=== PATIENT | male | born 1935 | race Caucasian/White ===

== ENCOUNTER 2019-11-18 17:16 | Inpatient (IN) | payer MEDICAID, MEDICARE ==
[~2019-11-18] VITALS: Ht 165.1 cm; Wt 55.3 kg
--- NOTE | 2019-11-18 18:30 | NUR ---
DIRECT ADMIT FROM [facility].RECEIVED REPORT FROM CAYETANO WORLEY RN OF [facility]. V/S STABLE.PT IS ALERT AND ORIENTED X 3 .VERBALLY RESPONSIVE.HARD OF HEARING. PT'S DAUGHTER,MICHAEL BLANKENSHIP WILL BRING PT'S JEFF HEARING AIDS LATER. PT DENIES ANY PAIN OR SOB AT THIS TIME. ORIENTED PT TO HIS ROOM AND THE USE OF CALL LIGHT.ENDORSED TO BAILER TENDERS SUPERVISOR SHAWN FAIRCHILD FOR CONTINUITY OF CARE AND ADMISSION. CALL LIGHT PLACED WITHIN REACH.
[2019-11-18] MEDS ORDERED: ONDANSETRON HCL/PF 4 MG/2 ML VIAL IVP PRN (19:00)
[2019-11-18] MEDS ORDERED: Z GUARD REMEDY 2 OZ OINT TP PRN (19:00)
[2019-11-18] MEDS ORDERED: ACETAMINOPHEN 325 MG TABLET PO PRN (19:00)
[2019-11-18 19:15] VITALS: BP 101/54
[2019-11-18] MEDS ORDERED: PRED2.5T PO (19:20)
[2019-11-18] MEDS ORDERED: OMEP20CA15 PO (19:20)
[2019-11-18] MEDS ORDERED: DILT30TA14 PO (19:20)
[2019-11-18] MEDS ORDERED: ACYC800T PO (19:20)
[2019-11-18] MEDS ORDERED: HYDR-4384 PO (19:20)
[2019-11-18] MEDS ORDERED: FOLI0.4T2 PO (19:20)
[2019-11-18] MEDS ORDERED: METH2.5T PO (19:20)
[2019-11-18] MEDS ORDERED: CALC-7 PO (19:20)
[2019-11-18] MEDS ORDERED: APIX5TAB PO (19:20)
[2019-11-18] MEDS ORDERED: FINA5TAB11 PO (19:20)
[2019-11-18] MEDS ORDERED: PRIM50TA27 PO (19:20)
[2019-11-18] MEDS ORDERED: ATOR10TA PO (19:20)
[2019-11-18] MEDS ORDERED: ASPI-1152 PO (19:20)
[2019-11-18] MEDS ORDERED: TAMS-12 PO (19:20)
[2019-11-18 20:00] VITALS: BP 101/54
--- NOTE | 2019-11-18 20:00 | NUR ---
TELE APPLIED previously but was not reading; tele box changed now reading afib in 80's will cont to monitor
--- NOTE | 2019-11-18 20:34 | NUR ---
PHARMACY; REVIEW OF ANTIBIOTICS ORDERED AND WHAT WAS ADMINISTERED AT [facility]; LOVENOX HELD. SPOKE WITH LAB PATIENT WAS GIVEN ROCEPHIN AND AZITHROMYCIN AT [facility]. SO MEDICATIONS RESCHEDULED FOR TOMORROW. PHARMACIST TO HOLD LOVENOX INJECTION PATIENT PLATELETS ARE LOW AT 114. PATIENT ALSO HAS MED REC THAT HAS NOT BEEN REVIEWED BY MD AND WAS APARENTLY ON APIX[employer]AN AT HOME.
[2019-11-18] MEDS ORDERED: CEFTRIAXONE 1 G in IV D5W 50 ML IV SCH (21:00)
[2019-11-18] MEDS ORDERED: AZITHROMYCIN 250 MG TABLET PO SCH (21:00)
[2019-11-18] MEDS: LIDOCAINE 5% OINT 35.44 GM TUBE TP SCH (21:05)
[2019-11-18] MEDS: VALACYCLOVIR HCL 500 MG TABLET PO SCH (21:05)
[2019-11-18] MEDS: IV NS 0.9% 1,000 ML IV PRN (21:31)
--- NOTE | 2019-11-18 22:00 | NUR ---
WITH PERMISSION FROM PATIENT CONTACTED DAUGHTER/PRIMARY CAREGIVER TO CLARIFY DETAILS OF ADMISSION ASSESSMENT MICHAEL BLANKENSHIP [phone]. ADMISSION ASSESSMENT PERFORMED.
[2019-11-19] VITALS: BP 155/89
--- NOTE | 2019-11-19 02:38 | NUR ---
SCD UNAVAILABLE ON FLOOR. WILL ENDORSE TO AM SHIFT TO APPLY WHEN CENTRAL SUPPLY IS AVAIALBLE. .
[2019-11-19 04:00] VITALS: BP 163/105
[2019-11-19] MEDS: VALACYCLOVIR HCL 500 MG TABLET PO SCH ×3 (04:07→22:54)
[2019-11-19] MEDS: LIDOCAINE 5% OINT 35.44 GM TUBE TP SCH ×3 (04:07→21:49)
--- NOTE | 2019-11-19 07:00 | NUR ---
RN PM CLOSING NOTES TELE PT ON TELE AFIB IN THE 80'S. PT ASSISTED TO COMMODE AND BACK TO BED. DENIES DIZZINESS. PATIENT HAD ONE BM LAST NIGHT. PT DENIES ANY PAIN OR SOB AT THIS TIME. CALL LIGHT PLACED WITHIN REACH. WILL ENDORSE TO DAY SHIFT FOR JOSELUIS.
--- NOTE | 2019-11-19 07:27 | NUR ---
RN NOTES Patient received on room air, no sob noted, a/o x3. on tele monitor, A FIB in the 80's, multiple redness on his body due to shingles apparently. regular diet with R AC 18 NS @ 75 ml per hour. bed at the lowest setting, call light within reach, side rails up x2.
[2019-11-19] MEDS ORDERED: PANTOPRAZOLE 40 MG TABLET.DR PO SCH (07:30)
[2019-11-19 08:00] VITALS: BP 153/88
[2019-11-19] MEDS: CEFTRIAXONE 1 G in IV D5W 50 ML IV SCH (08:08)
[2019-11-19] MEDS: AZITHROMYCIN 250 MG TABLET PO SCH (08:08)
[2019-11-19 08:38] LABS: BASOPHILS % (AUTO) 0.1 % (0.0-2.0); HEMATOCRIT 37 % (39-51); HEMOGLOBIN 12.6 g/dL (13.5-17.5); LYMPHOCYTES # (AUTO) 0.6 /CMM (0.8-4.8); LYMPHOCYTES % (AUTO) 6.2 % (20.0-44.0); MEAN CORPUSCULAR HGB CONC 34 g/dl (31.0-36.0); MEAN CORPUSCULAR VOLUME 98 fL (80-96); MONOCYTES # (AUTO) 0.7 /CMM (0.1-1.30); MONOCYTES % (AUTO) 8.1 % (2.0-12.0); NEUTROPHILS # (AUTO) 7.6 /CMM (1.8-8.9); NEUTROPHILS % (AUTO) 85.6 % (43.0-81.0); PLATELET COUNT (AUTO) 113 /CMM (150-450); RED BLOOD CELL COUNT(AUTO) 3.77 MIL/uL (4.5-6.0); WHITE BLOOD COUNT (AUTO) 8.9 K/uL (4.3-11.0)
[2019-11-19 09:06] LABS: ALBUMIN 3.2 g/dL (3.4-5.0); BILIRUBIN,TOTAL 0.7 mg/dL (0.2-1.0); CALCIUM, SERUM 9.2 mg/dL (8.5-10.1); CREATININE 0.8 mg/dL (0.6-1.3); TOTAL PROTEIN, SERUM 6.5 g/dL (6.4-8.2)
[2019-11-19 09:08] LABS: THYROID STIMULATING HORMONE 0.5 uIU/mL (0.358-3.74)
[2019-11-19] MEDS ORDERED: ENOXAPARIN SODIUM 40 MG/0.4 ML DISP.SYRIN SQ SCH (11:00)
[2019-11-19] MEDS: GABAPENTIN 100 MG CAPSULE PO SCH ×2 (12:33→16:19)
[2019-11-19 16:00] VITALS: BP 158/95
[2019-11-19] MEDS: APIXABAN 2.5 MG TABLET PO SCH (16:18)
[2019-11-19] MEDS: CALCIUM CARB 250MG /VITAMIN D 1 UDTAB PO SCH (16:19)
[2019-11-19] MEDS: DILTIAZEM HCL 30 MG TABLET PO SCH (16:19)
--- NOTE | 2019-11-19 17:30 | NUR ---
RN NOTE RECEIVED PATIENT FROM [facility] FOR CONTINUITY OF CARE. PATIENT IS IN STABLE CONDITION, A/O X4, AMBULATORY, ABLE TO MAKE NEEDS KNOWN. PATIENT SAFETY MAINTAINED, CALL LIGHT WITHIN REACH, WILL CONTINUE TO MONITOR.
[2019-11-19] MEDS ORDERED: IPRATROPIUM/ALBUTEROL INHALER IH SCH (18:00)
[2019-11-19 18:04] LABS: C-REACTIVE PROTEIN 12.7 mg/dL (0.0-0.9)
[2019-11-19] MEDS: IV NS 0.9% 1,000 ML IV PRN (18:40)
--- NOTE | 2019-11-19 19:14 | NUR ---
RN CLOSING NOTES. NO ACUTE CHANGES TO PATIENT CONDITION, ALL PATIENT NEEDS MET, SAFETY MAINTAINED, CALL LIGHT WITHIN REACH, ENDORSED TO PM NURSE FOR CONTINUITY OF CARE.
[2019-11-19 20:00] VITALS: BP 172/100
--- NOTE | 2019-11-19 20:00 | NUR ---
RN OPENING NOTES RECEIVED REPORT FROM GURINDER ALDRICH. PATIENT RESTING IN BED, A/OX3, ABLE TO MAKE NEEDS KNOWN AND FOLLOW COMMANDS. DENIES ANY PAIN. ON ROOM AIR, NO SIGNS OF RESPIRATORY DISTRESS NOTED. PATIENT AMBULATORY WITH ASSIST. IV ON RIGHT AC #18, PATENT AND FLUSHING WELL, NO S/S OF INFILTRATION NOTED, IVF RUNNING ORDERED, NO INFILTRATION NOTED. PATIENT SAFETY MAINTAINED, CALL LIGHT WITHIN REACH, SIDE RAILS UP X2, BED LOCKED AND IN LOWEST POSITION, BED ALARM ON. WILL CONTINUE TO MONITOR CLOSELY.
--- NOTE | 2019-11-19 20:20 | NUR ---
RN NOTES PAGED CREEL OPERATOR HOSPITALIST REGARDING PATIENT INCREASED BP RECHECKED 4X SBP STILL 170'S. MD STATED WILL ORDER BP MEDICATION. AWAITING FOR ORDERS.
[2019-11-19] MEDS: ALBUTEROL FS 2.5 MG/0.5 ML VIAL.NEB NEB SCH (21:48)
[2019-11-19] MEDS: TAMSULOSIN 0.4 MG CAP.SR.24H PO SCH (21:48)
[2019-11-19] MEDS: IPRATROPIUM NEB FS 0.5 MG/2.5 ML AMPUL.NEB NEB SCH (21:48)
[2019-11-19] MEDS: ATORVASTATIN 10 MG TABLET PO SCH (21:48)
[2019-11-19] MEDS: hydrALAZINE HCL 10 MG TABLET PO SCH (21:48)
[2019-11-19] MEDS: PRIMIDONE 50 MG TABLET PO SCH (21:48)
[2019-11-19] MEDS ORDERED: VALACYCLOVIR HCL 500 MG TABLET ONE (22:49)
[2019-11-20] VITALS: BP 140/77
[2019-11-20 04:00] VITALS: BP 138/88
[2019-11-20] MEDS: LIDOCAINE 5% OINT 35.44 GM TUBE TP SCH ×3 (05:29→21:07)
[2019-11-20] MEDS: hydrALAZINE HCL 10 MG TABLET PO SCH ×3 (05:30→21:06)
[2019-11-20] MEDS ORDERED: VALACYCLOVIR HCL 500 MG TABLET ONE (05:37)
[2019-11-20] MEDS: VALACYCLOVIR HCL 500 MG TABLET PO SCH ×3 (05:39→21:06)
[2019-11-20 06:54] LABS: CALCIUM, SERUM 9.1 mg/dL (8.5-10.1); CREATININE 0.7 mg/dL (0.6-1.3); MAGNESIUM 2.1 mg/dL (1.8-2.4); PHOSPHORUS 2.7 mg/dL (2.5-4.9); POTASSIUM 3.7 mmol/L (3.5-5.1)
[2019-11-20 06:59] LABS: BASOPHILS % (AUTO) 0.2 % (0.0-2.0); EOSINOPHILS % (AUTO) 0.3 % (0.0-6.0); HEMATOCRIT 38 % (39-51); LYMPHOCYTES % (AUTO) 15.2 % (20.0-44.0); MEAN CORPUSCULAR HGB CONC 34 g/dl (31.0-36.0); MEAN CORPUSCULAR VOLUME 98 fL (80-96); MONOCYTES # (AUTO) 0.8 /CMM (0.1-1.30); MONOCYTES % (AUTO) 11.7 % (2.0-12.0); NEUTROPHILS % (AUTO) 72.6 % (43.0-81.0); PLATELET COUNT (AUTO) 132 /CMM (150-450); RED BLOOD CELL COUNT(AUTO) 3.89 MIL/uL (4.5-6.0); WHITE BLOOD COUNT (AUTO) 6.9 K/uL (4.3-11.0)
--- NOTE | 2019-11-20 07:09 | NUR ---
RN NOTES PATIENT STILL SLEEPING IN BED, BUT EASY TO AROUSE. A/OX3. NO COMPLAINTS OF PAIN THROUGHOUT SHIFT. KEPT PATIENT CLEAN, DRY, AND COMFORTABLE. COVID19 SWAB STILL PENDING. IV SITE STILL INTACT AND IVF RUNNING ORDERED. SAFETY MEASURES MAINTAINED. ISOLATION PRECAUTIONS MAINTAINED. ALL MD ORDERS ATTENDED. ENDORSED TO GURINDER TIRADO FOR JOSELUIS.
[2019-11-20] MEDS: IPRATROPIUM NEB FS 0.5 MG/2.5 ML AMPUL.NEB NEB SCH ×2 (07:35→13:30)
[2019-11-20] MEDS: ALBUTEROL FS 2.5 MG/0.5 ML VIAL.NEB NEB SCH ×2 (07:35→13:30)
[2019-11-20 08:00] VITALS: BP 140/81
--- NOTE | 2019-11-20 08:00 | NUR ---
RN OPENING NOTES PATIENT RESTING IN BED, A/OX3, ABLE TO MAKE NEEDS KNOWN AND FOLLOW COMMANDS. DENIES ANY PAIN. ON ROOM AIR, SAT AT 98%. NO SIGNS OF RESPIRATORY DISTRESS NOTED. PATIENT AMBULATORY WITH ASSIST. IV ON RIGHT AC #18, PATENT AND FLUSHING WELL, NO S/S OF INFILTRATION NOTED. PATIENT SAFETY MAINTAINED, CALL LIGHT WITHIN REACH, SIDE RAILS UP X2, BED LOCKED AND IN LOWEST POSITION, BED ALARM ON. WILL CONTINUE TO MONITOR CLOSELY.
[2019-11-20] MEDS: AZITHROMYCIN 250 MG TABLET PO SCH (08:45)
[2019-11-20] MEDS: CEFTRIAXONE 1 G in IV D5W 50 ML IV SCH (08:45)
[2019-11-20] MEDS: FINASTERIDE (5 MG) 5 MG TABLET PO SCH (08:46)
[2019-11-20] MEDS: DILTIAZEM HCL 30 MG TABLET PO SCH ×2 (08:46→17:08)
[2019-11-20] MEDS: GABAPENTIN 100 MG CAPSULE PO SCH ×2 (08:46→17:08)
[2019-11-20] MEDS: PANTOPRAZOLE 40 MG TABLET.DR PO SCH (08:47)
[2019-11-20] MEDS: ASPIRIN EC 81 MG TABLET.DR PO SCH (08:47)
[2019-11-20] MEDS: CALCIUM CARB 250MG /VITAMIN D 1 UDTAB PO SCH ×2 (08:47→17:08)
[2019-11-20] MEDS: APIXABAN 2.5 MG TABLET PO SCH ×2 (08:48→17:09)
[2019-11-20] MEDS: FOLIC ACID 1 MG TABLET PO SCH (08:51)
--- NOTE | 2019-11-20 09:00 | NUR ---
Spoke with the daughter of the patient. She was updated on the status of the patient. She will be calling back at a later time.
[2019-11-20] MEDS: IV NS 0.9% 1,000 ML IV PRN ×2 (09:17→22:43)
--- NOTE | 2019-11-20 12:00 | NUR ---
The patient is unable to provide an accurate number for the provider to call his daughter at this moment. will notify the provider by the end of the day if the patient' daughter doesn't call back before that time. Will provide the incoming nurse with this information as well.
[2019-11-20 15:46] VITALS: BP 145/82
[2019-11-20 16:00] VITALS: BP 145/82
--- NOTE | 2019-11-20 18:00 | NUR ---
Spoke with the daughter of the patient and let her know that her number has been forwarded to the provider. The provider will communicate with her.
--- NOTE | 2019-11-20 18:49 | NUR ---
RN CLOSING NOTES PATIENT RESTING IN BED, A/OX3, ABLE TO MAKE NEEDS KNOWN AND FOLLOW COMMANDS. DENIES ANY PAIN. ON ROOM AIR, SAT AT 98%. NO SIGNS OF RESPIRATORY DISTRESS NOTED. PATIENT AMBULATORY WITH ASSIST. IV ON RIGHT AC #18, PATENT AND FLUSHING WELL, NO S/S OF INFILTRATION NOTED. PATIENT SAFETY MAINTAINED, CALL LIGHT WITHIN REACH, SIDE RAILS UP X2, BED LOCKED AND IN LOWEST POSITION, BED ALARM ON. WILL ENDORSE THE NEXT SHIFT.
--- NOTE | 2019-11-20 19:00 | NUR ---
RN OPENING NOTES RECEIVED REPORT FROM GURINDER TIRADO. PATIENT RESTING IN BED, A/OX4, ABLE TO MAKE NEEDS KNOWN AND FOLLOW COMMANDS. DENIES ANY PAIN. ON ROOM AIR, NO SIGNS OF RESPIRATORY DISTRESS NOTED. PATIENT AMBULATORY WITH ASSIST. IV ON RIGHT AC #18, PATENT AND FLUSHING WELL, NO S/S OF INFILTRATION NOTED, IVF RUNNING ORDERED, NO INFILTRATION NOTED. PATIENT SAFETY MAINTAINED, CALL LIGHT WITHIN REACH, SIDE RAILS UP X2, BED LOCKED AND IN LOWEST POSITION, BED ALARM ON. ISOLATION PRECAUTIONS MAINTAINED. WILL CONTINUE TO MONITOR CLOSELY.
[2019-11-20] MEDS: IPRATROPIUM/ALBUTEROL INHALER IH SCH ×2 (19:28→20:06)
[2019-11-20 20:00] VITALS: BP 131/73
[2019-11-20] MEDS: TAMSULOSIN 0.4 MG CAP.SR.24H PO SCH (21:06)
[2019-11-20] MEDS: ATORVASTATIN 10 MG TABLET PO SCH (21:06)
[2019-11-20] MEDS: PRIMIDONE 50 MG TABLET PO SCH (21:06)
[2019-11-21] MEDS: IPRATROPIUM/ALBUTEROL INHALER IH SCH ×4 (02:25→20:57)
[2019-11-21 04:00] VITALS: BP 141/82
[2019-11-21] MEDS: VALACYCLOVIR HCL 500 MG TABLET PO SCH ×3 (04:47→20:58)
[2019-11-21] MEDS: LIDOCAINE 5% OINT 35.44 GM TUBE TP SCH ×3 (04:47→21:29)
[2019-11-21] MEDS: hydrALAZINE HCL 10 MG TABLET PO SCH ×3 (04:47→20:58)
--- NOTE | 2019-11-21 07:15 | NUR ---
RN NOTES PATIENT STILL SLEEPING IN BED, BUT EASY TO AROUSE. A/OX4. NO COMPLAINTS OF PAIN THROUGHOUT SHIFT. KEPT PATIENT CLEAN, DRY, AND COMFORTABLE. COVID19 SWAB NEGATIVE; MD, CN, AND MARKETING SALES REPRESENTATIVE AWARE. IV SITE STILL INTACT AND IVF RUNNING ORDERED. SAFETY MEASURES MAINTAINED. ISOLATION PRECAUTIONS MAINTAINED. ALL MD ORDERS ATTENDED. ENDORSED TO AM RN FOR JOSELUIS.
--- NOTE | 2019-11-21 07:21 | NUR ---
RN OPENING NOTES RECEIVED REPORT FROM [facility] SHIFT NURSE. PT AWAKE IN BED, ALERT AND ORIENTED X 4, ABLE TO FOLLOW COMMANDS AND MAKE NEEDS KNOWN. DENIES ANY PAIN AT THIS TIME. ON ROOM AIR, SATURATING WELL, RESPIRATIONS EVEN AND UNLABORED, NO SIGNS OF RESPIRATORY DISTRESS NOTED. IV ON RIGHT AC #18, PATENT AND FLUSHING WELL, NO S/S OF INFILTRATION NOTED, IVF RUNNING ORDERED. PATIENT SAFETY MAINTAINED, CALL LIGHT WITHIN REACH, BED LOCKED AND IN LOWEST POSITION, BED ALARM ON. INTRODUCED SELF TO PT AND DISCUSSED PLAN OF CARE.
[2019-11-21] MEDS: PANTOPRAZOLE 40 MG TABLET.DR PO SCH (07:40)
[2019-11-21 08:00] VITALS: BP 137/91
[2019-11-21] MEDS: FINASTERIDE (5 MG) 5 MG TABLET PO SCH (09:30)
[2019-11-21] MEDS: AZITHROMYCIN 250 MG TABLET PO SCH (09:30)
[2019-11-21] MEDS: CALCIUM CARB 250MG /VITAMIN D 1 UDTAB PO SCH ×2 (09:30→17:40)
[2019-11-21] MEDS: GABAPENTIN 100 MG CAPSULE PO SCH ×2 (09:30→17:40)
[2019-11-21] MEDS: FOLIC ACID 1 MG TABLET PO SCH (09:30)
[2019-11-21] MEDS: ASPIRIN EC 81 MG TABLET.DR PO SCH (09:30)
[2019-11-21] MEDS: DILTIAZEM HCL 30 MG TABLET PO SCH ×2 (09:31→17:42)
[2019-11-21] MEDS: APIXABAN 2.5 MG TABLET PO SCH ×2 (09:35→17:41)
[2019-11-21] MEDS: CEFTRIAXONE 1 G in IV D5W 50 ML IV SCH (09:43)
--- NOTE | 2019-11-21 13:30 | NUR ---
transferred pt via acls to [facility], report given by bedside to RN for nicole
[2019-11-21 13:40] VITALS: BP 118/71
--- NOTE | 2019-11-21 13:50 | NUR ---
MS RN NOTES RECEIVED PT VIA BED AT 1330, TRANSFER FROM [facility]. RECEIVED BEDSIDE REPORT FROM IGNACIO/RN. PT AWAKE, A/OX4. PER RN, PT AMBULATORY. TOLERATING RA, WITH NO ACUTE RESPIRATORY DISTRESS NOTED. PT DENIES ANY PAIN OR DISCOMFORT AT THIS TIME. PT DENIES CONCERNS OR QUESTIONS AT THIS TIME WELL. PIV TO RAC G18, FLUSHED WITH NA, INTACT AND OPERATIONAL. PT KEPT COMFORTABLE IN BED. ORIENTED WITH THE ROOM AND STAFFS. CALL LIGHT KEPT WITHIN REACH. PT'S BED IN LOWEST, LOCKED POSITION WITH SR X3. WILL CONTINUE PLAN OF CARE.
--- NOTE | 2019-11-21 13:58 | NUR ---
MS RN NOTES PER RN/IGNACIO. SHINGLES RASHES ARE CRUSTED AND DRY. WILL CONTINUE TO MONITOR.
[2019-11-21] MEDS: IV NS 0.9% 1,000 ML IV PRN (15:17)
--- NOTE | 2019-11-21 18:50 | NUR ---
MS RN NOTES PT REMAINS IN BED, AWAKE, A/OX4, AMBULATORY. TOLERATING RA, WITH NO ACUTE RESPIRATORY DISTRESS NOTED. PT DENIES ANY PAIN OR DISCOMFORT AT THIS TIME. IVF NS AT 75ML/HR TO LFA G22, FLUSHED WITH NS, INTACT AND OPERATIONAL. PT KEPT COMFORTABLE IN BED. ALL NEEDS AND CARE ATTENDED. CALL LIGHT KEPT WITHIN REACH. PT'S BED IN LOWEST, LOCKED POSITION WITH SR X3. WILL ENDORSE TO INCOMING NIGHT NURSE FOR JOSELUIS.
--- NOTE | 2019-11-21 19:40 | NUR ---
MS RN NOTES, PATIENT IN BED, AWAKE, A/OX4, BREATHING EVEN AND UNLABORED, NO SOB/ACUTE DISTRESS NOTED AT THIS TIME, AT RA TOLERATING WELL, DENIES ANY PAIN OR DISCOMFORT AT THIS TIME, LFA G22 IVF NS AT 75ML/HR TO, INFUSING WELL AND PATIENT TOLERATED WELL, NO S/S OF INFILTRATION OR ABNORMALITY NOTED, ALL NEEDS ATTENDED, CALL LIGHT WITHIN REACH, BED LOCKED AND IN LOWEST POSITION, WITH SR X3, WILL CONTINUE TO MONITOR CLOSELY.
[2019-11-21 20:00] VITALS: BP 141/95
--- NOTE | 2019-11-21 21:00 | NUR ---
RN NOTES, INFORMED PATIENT THAT PER PROTOCOL WE TAKE PICTURES OF SKIN ISSUES FRIDAY NIGHT, AND WHAT TIME IS BETTER FOR HIM TO TAKE THE PICTURES, AND HE STATED HE DOES NOT WANT TO TAKE PICTURES, THAT THEY ALREADY DID, AND HE WANTS TO SLEEP ALL NIGHT AND DOES NOT WANT TO BE BOTHER ALL NIGHT IF POSSIBLE, ENCOURAGED AND EXPLAINED RISKS AND BENEFITS X3 AND HE STILL REFUSED, WE WILL FOLLOW UP LATER.
[2019-11-21] MEDS: TAMSULOSIN 0.4 MG CAP.SR.24H PO SCH (21:08)
[2019-11-21] MEDS: ATORVASTATIN 10 MG TABLET PO SCH (21:08)
[2019-11-21] MEDS: PRIMIDONE 50 MG TABLET PO SCH (21:08)
[2019-11-22] MEDS: IPRATROPIUM/ALBUTEROL INHALER IH SCH ×3 (02:41→14:28)
[2019-11-22] MEDS: VALACYCLOVIR HCL 500 MG TABLET PO SCH ×2 (04:42→14:28)
[2019-11-22] MEDS: LIDOCAINE 5% OINT 35.44 GM TUBE TP SCH ×2 (04:43→14:41)
[2019-11-22] MEDS: hydrALAZINE HCL 10 MG TABLET PO SCH ×2 (04:43→14:28)
--- NOTE | 2019-11-22 06:40 | NUR ---
RN CLOSING NOTES, PATIENT ASLEEP BUT EASILY AROUSES TO VERBAL STIMULI, NO SOB/ACUTE DISTRESS NOTED, AT RA TOLERATED WELL, NO SIGNIFICANT CHANGE IN CONDITION, WILL ENDORSE CONTINUITY OF CARE TO ONCOMING NURSE.
[2019-11-22 07:14] LABS: BASOPHILS % (AUTO) 0.6 % (0.0-2.0); EOSINOPHILS % (AUTO) 1.2 % (0.0-6.0); HEMATOCRIT 39 % (39-51); HEMOGLOBIN 13.2 g/dL (13.5-17.5); LYMPHOCYTES # (AUTO) 0.8 /CMM (0.8-4.8); LYMPHOCYTES % (AUTO) 14.7 % (20.0-44.0); MEAN CORPUSCULAR HGB CONC 34 g/dl (31.0-36.0); MEAN CORPUSCULAR VOLUME 98 fL (80-96); MONOCYTES # (AUTO) 0.7 /CMM (0.1-1.30); MONOCYTES % (AUTO) 12.8 % (2.0-12.0); NEUTROPHILS # (AUTO) 3.8 /CMM (1.8-8.9); NEUTROPHILS % (AUTO) 70.7 % (43.0-81.0); PLATELET COUNT (AUTO) 140 /CMM (150-450); RED BLOOD CELL COUNT(AUTO) 3.97 MIL/uL (4.5-6.0); WHITE BLOOD COUNT (AUTO) 5.3 K/uL (4.3-11.0)
[2019-11-22 07:26] LABS: CALCIUM, SERUM 8.5 mg/dL (8.5-10.1); CREATININE 0.6 mg/dL (0.6-1.3); MAGNESIUM 2.1 mg/dL (1.8-2.4); PHOSPHORUS 2.9 mg/dL (2.5-4.9); POTASSIUM 3.6 mmol/L (3.5-5.1)
[2019-11-22 08:00] VITALS: BP 139/85
[2019-11-22] MEDS: IV NS 0.9% 1,000 ML IV PRN (08:58)
[2019-11-22] MEDS: CEFTRIAXONE 1 G in IV D5W 50 ML IV SCH (10:26)
[2019-11-22] MEDS: FOLIC ACID 1 MG TABLET PO SCH (10:35)
[2019-11-22] MEDS: FINASTERIDE (5 MG) 5 MG TABLET PO SCH (10:35)
[2019-11-22] MEDS: PANTOPRAZOLE 40 MG TABLET.DR PO SCH (10:35)
[2019-11-22] MEDS: ASPIRIN EC 81 MG TABLET.DR PO SCH (10:35)
[2019-11-22] MEDS: GABAPENTIN 100 MG CAPSULE PO SCH ×2 (10:35→17:31)
[2019-11-22] MEDS: DILTIAZEM HCL 30 MG TABLET PO SCH ×2 (10:36→17:31)
[2019-11-22] MEDS: CALCIUM CARB 250MG /VITAMIN D 1 UDTAB PO SCH ×2 (10:36→17:31)
[2019-11-22] MEDS: AZITHROMYCIN 250 MG TABLET PO SCH (10:36)
[2019-11-22] MEDS: APIXABAN 2.5 MG TABLET PO SCH ×2 (10:39→17:32)
[2019-11-22] MEDS ORDERED: GABA100C PO (15:23)
[2019-11-22] MEDS ORDERED: LIDO35.4 TP (15:23)
[2019-11-22] MEDS ORDERED: AZIT250T PO (15:23)
[2019-11-22] MEDS ORDERED: VALA500T PO (15:23)
[2019-11-22 16:00] VITALS: BP 128/84
--- NOTE | 2019-11-22 17:30 | NUR ---
refused discharge photos.
[2019-11-22 17:31] VITALS: BP 128/84
--- NOTE | 2019-11-22 18:30 | NUR ---
maria luz durant in earlier,dc order given.spoke to several times and gave dc instructions.hep lock removed .taken to lobby via w/c all papers signed as well as belonging sheet.pt. verb. understanding.
[2019-11-26] MEDS ORDERED: METHOTREXATE SODIUM (2.5MG) 2.5 MG TABLET PO SCH (09:00)
== END 2019-11-22 18:45 | disposition home or self-care (01) | DRG 139 ==
LOC: TELE 18:16 → MED 11-19 08:17 → MEDSG1 11-19 16:56 → MED 11-21 10:07 → MEDSG1 11-21 10:21 → MED 11-21 13:18
PROVIDERS: ADMIT Nurse Practitioner Acute Care; ATTEND Nurse Practitioner Acute Care
DX: J15.9 Unspecified bacterial pneumonia (principal); I21.A1 Myocardial infarction type 2; G92 Toxic encephalopathy; B02.29 Other postherpetic nervous system involvement; B02.8 Zoster with other complications; D69.6 Thrombocytopenia, unspecified; E87.1 Hypo-osmolality and hyponatremia; I48.0 Paroxysmal atrial fibrillation; J44.9 Chronic obstructive pulmonary disease, unspecified; N40.0 Benign prostatic hyperplasia without lower urinary tract symptoms; J61 Pneumoconiosis due to asbestos and other mineral fibers; D53.9 Nutritional anemia, unspecified; Z79.01 Long term (current) use of anticoagulants; Z87.891 Personal history of nicotine dependence; R41.0 Disorientation, unspecified; E78.5 Hyperlipidemia, unspecified; K21.9 Gastro-esophageal reflux disease without esophagitis; M06.9 Rheumatoid arthritis, unspecified; J44.0 Chronic obstructive pulmonary disease with (acute) lower respiratory infection
CPT/HCPCS: 36415; 71045-TC; 80048-TC; 80053-TC; 80061-TC; 82728-TC; 83540-TC; 83615-TC; 83735-TC; 84100-TC; 84443-TC; 84484-TC; 85025-TC; 86140-TC; 93307-TC; 97116-TC; 97530-TC; G0378; J0696; J1650; J7030; J7060; U0003-CS